=== PATIENT | male | born 1995 | race Asian ===

== ENCOUNTER 2020-03-02 05:52 | Emergency (ER) | payer BC ==
[~2020-03-02] VITALS: Ht 180.3 cm; Wt 136.1 kg
[2020-03-02 05:52] VITALS: TEMP 99
[~2020-03-02 05:52] MED LIST: CLONIDINE0.1 MG PO
[2020-03-02 06:39] LABS: PLATELET COUNT 338 K/uL (142-355)
[2020-03-02 06:46] LABS: POTASSIUM 4.2 mmol/L (3.6-5.2); SODIUM 140 mmol/L (136-145)
[2020-03-02 07:30] VITALS: BP 122/69
== END 2020-03-02 07:43 | disposition home or self-care (01) ==
LOC: ED 06:08
PROVIDERS: Family Medicine
DX: K21.9 Gastro-esophageal reflux disease without esophagitis (principal)
CPT/HCPCS: 36415; 80053; 82550; 82553; 84484; 85027; 93005; 99284

== ENCOUNTER 2021-01-09 06:25 | Emergency (ER) | payer BC ==
[~2021-01-09] VITALS: Ht 180.3 cm; Wt 136.1 kg
[2021-01-09 06:33] VITALS: TEMP 98.6
[2021-01-09 07:11] LABS: PLATELET COUNT 306 K/uL (142-355)
[2021-01-09 07:19] LABS: POTASSIUM 3.5 mmol/L (3.6-5.2)
[2021-01-09 08:01] VITALS: BP 131/71
== END 2021-01-09 08:02 | disposition home or self-care (01) ==
LOC: ED 06:25
PROVIDERS: Emergency Medicine
DX: R00.2 Palpitations (principal)
CPT/HCPCS: 80048; 80307; 84484; 85027; 93005; 99283